=== PATIENT | male | born 1990 | race African-American/Black ===

== ENCOUNTER 2020-02-27 11:24 | Emergency (ER) | payer SELFPAY ==
[2020-02-27 11:25] VITALS: BP 145/87; PULSE 86; RESP 14; TEMP 36.4; O2SAT 100; BMI 34.0
--- NOTE | 2020-02-27 12:10 | ED.DENTAL ---
HPI - Dental/Oral <[facility] - Last Filed: 02/27/20 13:21> General Chief complaint: Dental/Oral Stated complaint: abcess in tooth,face going numb,nausea,dizzy Time Seen by Provider: 02/27/20 11:51 Source: patient and family Mode of arrival: Ambulatory Limitations: no limitations History of Present Illness HPI Narrative: The patient is a 29-year-old male current smoker who denies pertinent medical history presents with a chief complaint of a likely abscess in his tooth. He states that his left lower jaw has been hurting for several days. He has used Tylenol Motrin and is not helped that much. He states that he feels drainage from a broken tooth. This drainage is very bad tasting and makes him nauseous and dizzy. He states that the pain is shooting from his left lower jaw. He denies any fevers but complains of some chills. No vomiting. Related Data Previous Rx's Medication Instructions Recorded ondansetron 4 mg PO Q6H PRN #20 tab 02/27/20 penicillin V potassium 500 mg PO QID 7 Days #28 tab 02/27/20 tramadol 50 mg PO Q6H PRN #7 tab 02/27/20 Allergies Allergy/AdvReac Type Severity Reaction Status Date / Time No Known Drug Allergies Allergy Verified 02/27/20 11:30 Review of Systems <[facility] - Last Filed: 02/27/20 13:21> Review of Systems Narrative: GENERAL: Denies chills, fatigue, malaise, fever, sweats. HEENT: See HPI RESPIRATORY: Denies dyspnea, cough, wheezing, hemoptysis, sputum. CARDIOVASCULAR: Denies chest pain, palpitations, orthopnea, edema, GASTROINTESTINAL: See HPI : Denies dysuria, frequency, incontinence, hematuria, urinary retention. MUSCULOSKELETAL: denies weakness, joint pain, or bony pain SKIN: Denies rash, skin lesions, or other NEUROLOGIC: Denies weakness, headache, numbness, change in speech, confusion, seizures, incoordination. PSYCHIATRIC: No concerning psychosocial issues. 12 point review of systems is negative except for those stated above Patient History [facility] Last Filed: 02/27/20 13:21> Social History Smoking Status: Current every day smoker Smoking Status: Current every day smoker alcohol intake frequency: holidays/special occasions only Substance Use Type: does not use Exam <RASHMI Trent - Last Filed: 02/27/20 13:21> Narrative Exam Narrative: GENERAL: This is a well-nourished, well-developed patient, in no acute distress HEAD: Atraumatic. Normocephalic. No temporal or scalp tenderness. EYES: Pupils equal round and reactive. Extraocular motions intact. No scleral icterus. No injection or drainage. ENT: Nose without bleeding, purulent drainage or septal hematoma. Throat without erythema, tonsillar hypertrophy or exudate. Uvula midline. Airway patent. Poor dentition noted. Swelling erythema pain to palpation 1st left lower molar. Visible drainage noted. NECK: Trachea midline. No JVD or lymphadenopathy. Supple, nontender, no meningeal signs. CARDIOVASCULAR: Regular rate and rhythm RESPIRATORY: Clear to auscultation. Breath sounds equal bilaterally. No wheezes, rales, or rhonchi. No cough. No increased respiratory effort. No accessory muscle use GASTROINTESTINAL: Abdomen soft, non-tender, nondistended. No hepato-splenomegaly, or palpable masses. No guarding. EXTREMITIES: No clubbing, cyanosis, or edema. No joint tenderness, effusion, or edema noted. BACK: Nontender without deformity or crepitance. No flank tenderness. NEURO: AOx3. SKIN: No rash or erythema on visible skin. No erythema over her jaw. Initial Vital Signs Initial Vital Signs: Vital Signs Temperature 97.5 F L 02/27/20 11:25 Pulse Rate 86 02/27/20 11:25 Respiratory Rate 14 02/27/20 11:25 Blood Pressure 145/87 H 02/27/20 11:25 Pulse Oximetry 100 02/27/20 11:25 <Susie Garcia DO - Last Filed: 03/03/20 07:21> Initial Vital Signs Initial Vital Signs: Vital Signs Temperature 97.5 F L 02/27/20 11:25 Pulse Rate 86 02/27/20 11:25 Respiratory Rate 14 02/27/20 11:25 Blood Pressure 145/87 H 02/27/20 11:25 Pulse Oximetry 100 02/27/20 11:25 Course <RASHMI Trent - Last Filed: 02/27/20 13:21> Orders Ordered: Discontinued Medications Ondansetron HCl (Zofran Odt) 4 mg SL NOW ONE Stop: 02/27/20 12:10 Last Admin: 02/27/20 12:18 Dose: 4 mg Documented by: MAGGIE Tramadol HCl (Ultram) 50 mg PO NOW ONE Stop: 02/27/20 12:10 Last Admin: 02/27/20 12:18 Dose: 50 mg Documented by: MAGGIE Vital Signs Vital signs: Vital Signs - 8 hr 02/27/20 11:25 02/27/20 12:30 Temperature 97.5 F L Pulse Rate 86 76 Respiratory Rate 14 Blood Pressure 145/87 H 124/93 H Pulse Oximetry 100 100 <Susie Garcia DO - Last Filed: 03/03/20 07:21> Orders Ordered: Discontinued Medications Ondansetron HCl (Zofran Odt) 4 mg SL NOW ONE Stop: 02/27/20 12:10 Last Admin: 02/27/20 12:18 Dose: 4 mg Documented by: MAGGIE Tramadol HCl (Ultram) 50 mg PO NOW ONE Stop: 02/27/20 12:10 Last Admin: 02/27/20 12:18 Dose: 50 mg Documented by: MAGGIE Vital Signs Vital signs: Vital Signs - 8 hr 02/27/20 11:25 02/27/20 12:30 Temperature 97.5 F L Pulse Rate 86 76 Respiratory Rate 14 Blood Pressure 145/87 H 124/93 H Pulse Oximetry 100 100 MDM - Dental/Oral <RASHMI Trent - Last Filed: 02/27/20 13:21> MDM Narrative Medical decision making narrative: The patient is a 29-year-old male who presents with a chief complaint of likely dental infection. Exam correlates. Place patient on penicillin. He is hemodynamically stable and afebrile. A given tramadol and Zofran for pain. Discussed at length that he has to follow up with a dentist, gave him some dental resources as well as a primary care provider given contact information [facility] health natural resource economist. Discussed coming back to the ER for any high fevers, keep down food or fluids etcetera any acute concerns. Patient has no questions or concerns upon discharge and states understanding return precautions as well as follow-up care. Discharge Plan Departure Patient Disposition: Home Clinical Impression: Dental abscess Discharge Date/Time: 02/27/20 12:35 Instructions: Tooth Abscess, DI for Dental Pain Activity Restrictions/Additional Instructions: Thank you for trusting us with your care today. Your exam and history is concerning for a dental infection. I have sent 3 prescriptions to [facility]. This includes an antibiotic. I suggest taking this with probiotic or yogurt. I also sent you pain medicine and nausea medicine. I have given you a prescription of a narcotic for pain. Be aware that this can be constipating and sedating. I encouraged taking with a stool softener, pushing fluids and fiber. Do not take and drive, operate heavy machinery, etc. Do not combine it with any other sedating substances such as alcohol. The combination of narcotics and alcohol and/or other sedatives can be lethal. Be aware that the nausea medicine could also be sedating. I also suggest use of ice packs, [id number] medications as needed and able. Please follow-up with dentist in the next few days. I have also given contact information to the [facility] health natural resource economist, who can help you identify primary care provider. Please monitor for high fevers, inability keep down food or fluids, worsening or lack of improvement. Please come back to the emergency department for any acute concerns. Prescriptions: New ondansetron 4 mg tablet,disintegrating 4 mg PO Q6H PRN (Reason: nausea and vomiting) Qty: 20 RF: 0 tramadol 50 mg tablet 50 mg PO Q6H PRN (Reason: pain) Qty: 7 RF: 0 penicillin V potassium 500 mg tablet 500 mg PO QID 7 Days Qty: 28 RF: 0 Referrals: [facility] [Outside] <Susie Garcia, - Last Filed: 03/03/20 07:21> [facility] ED Attending Lydia Attestation: I was immediately available in the department for consultation. Documentation has been reviewed. I agree with assessment and plan.
[2020-02-27] MEDS: ONDANSETRON 4 MG ODT SL (12:18)
[2020-02-27] MEDS: TRAMADOL 50 MG TABLET PO (12:18)
[2020-02-27 12:30] VITALS: BP 124/93; PULSE 76; O2SAT 100
== END 2020-02-27 12:35 | disposition home or self-care (01) ==
PROVIDERS: Emergency Provider Nurse Practitioner Family
DX: K04.7 Periapical abscess without sinus (principal)
CPT/HCPCS: 99283

== ENCOUNTER 2020-06-07 14:51 | Emergency (ER) | payer SELFPAY ==
[2020-06-07] VITALS (13 sets, daily range): BP systolic 112–158; BP diastolic 67–85; PULSE 77–121; RESP 18–27; TEMP 36.9; O2SAT 98–100; BMI 32.5
[2020-06-07] MEDS: ACETAMINOPHEN 325 MG TABLET 975 MG PO (15:27)
[2020-06-07] MEDS: ONDANSETRON 4 MG/2 ML INJ IV ×2 (15:27→19:34)
[2020-06-07] MEDS: SODIUM CHLORIDE 0.9% 1,000 ML 1000 ML IV (15:28)
--- NOTE | 2020-06-07 15:29 | ED.SOB ---
HPI - SOB/Dyspnea General Chief Complaint: Shortness of Breath/Dyspnea Stated Complaint: hard to breath,lungs and chest hurt,dizzy Time Seen by Provider: 06/07/20 14:57 Source: patient Mode of arrival: Ambulatory Limitations: no limitations History of Present Illness HPI Narrative: This is a 30-year-old male, former smoker, has no contributory medical history presents to ED with chief complain of 2-3 day duration of my lungs and chest hurts all the time. Patient reports associated symptoms as dizziness, feeling fatigue, generalized body and muscle aches and spasm, decreased energy. Patient also reports lost taste and smell. Patient denies cough. Patient reports subjective fever and chills, 2-3 episodes of vomiting and loose stools with nausea. He had difficult time tolerating oral fluids due to nausea. Patient is uncertain of known exposure to COVID but works at [employer]. He denies recent travel. Reports his girlfriend is having symptoms dry cough and runny nose. Patient denies history of blood clots or DVT, recent surgery, history of tumors or cancers. Patient does not have PCP. Related Data Previous Rx's Medication Instructions Recorded ondansetron 4 mg PO Q6H PRN #20 tab 02/27/20 tramadol 50 mg PO Q6H PRN #7 tab 02/27/20 Allergies Allergy/AdvReac Type Severity Reaction Status Date / Time No Known Drug Allergies Allergy Verified 02/27/20 11:30 Review of Systems Review of Systems Narrative: General: See HPI HEENT: Denies sinus pain, ear pain, sore throat, difficulty swallowing, dizziness. Respiratory: Denies dyspnea, cough, wheezing, hemoptysis, sputum. Cardiovascular: Denies chest pain, palpitations, orthopnea, edema. Gastrointestinal: Denies nausea, vomiting, abdominal pain, diarrhea, constipation, melena. : Denies dysuria, frequency, incontinence, hematuria, urinary retention. Musculoskeletal: Denies weakness, joint pain or bony pain. Skin: Denies rash, skin lesions, or other. Neurologic: Denies weakness, headache, numbness, change in speech, confusion, seizures, incoordination. Psychiatric: No concerning psychosocial issues. 12-point review of systems is negative except for those stated above. Patient History Medical History No significant past medical history Surgical History No pertinent past surgical history Social History Smoking Status: Former smoker Smoking Status: Former smoker alcohol intake frequency: 0-2 drinks per day Substance Use Type: marijuana Exam Narrative Exam Narrative: GEN: Alert, oriented x 3, well appearing and nourished, and in no acute distress. Head: Normal cephalic, atraumatic. No scalp or temporal tenderness, palpable mass or rash. EYES: Pupils are equal, round, and reactive to light and accommodation. Extraocular muscles are intact bilaterally. There is no subconjunctival hemorrhage, exudate and sclera non-icteric. ENT: Hearing grossly intact. Nose without bleeding, purulent discharge or deviation. Facial sinuses nontender to palpate. Mucous membrane moist, no mucosal lesion. Throat without erythema, tonsillar hypertrophy or exudate. Uvula in midline, airway patent. Neck: Trachea in midline. No JVD, non-tender without lymphadenopathy. No masses or thyroid megaly. Supple, non-tender and no meningeal signs. CARDIAC: Normal regular tachy rate up to 120 and regular rhythm without murmurs, gallops, or rubs. No chest wall tenderness. No peripheral edema, cyanosis or pallor. Capillary refill is less than 2 seconds. RESPIRATORY: Lungs are decreased auscultate bilaterally. No cough, wheezes, rales, or rhonchi. No stridor, respiratory distress, increase work of breathing, or accessary muscle used. ABD: Abdomen soft and non-distended. Mild tenderness to palpate in bilateral upper quadrant. No guarding or rebound tenderness to palpate. Bowel sounds are normal in all 4 quadrants. There is no palpable masses or organomegaly. EXT: Full painless ROM of all extremities with no loss of sensation, strength, effusion or edema. SKIN: Warm, dry, normal color for patient. No erythema, lesions or rash over visible areas. BACK: Nontender without deformity or crepitance. No flank tenderness. NEUROLOGICAL: Alert and oriented to place, time and person. Sensation and motor function intact bilaterally. No facial droops, dysphasia. PSYCHIATRIC: Good judgement and reason, without hallucinations, abnormal affect or abnormal behaviors during the examination. Patient is not suicidal. Initial Vital Signs Initial Vital Signs: Vital Signs Temperature 98.4 F 06/07/20 15:03 Pulse Rate 114 H 06/07/20 15:03 Respiratory Rate 22 06/07/20 15:03 Blood Pressure 158/85 H 06/07/20 15:03 Pulse Oximetry 98 06/07/20 15:03 Scores GCS Nishi coma scale eye opening: Spontaneous Nishi coma scale verbal response: Orientated Stanton coma scale motor response: Obey commands Nishi coma scale total score: 15 PERC Score Age greater than or equal to 50 years: No Heart rate greater than or equal to 100 bpm: Yes Room Air O2 Sat less than 95%: No Unilateral leg swelling: No Recent trauma or surgery: No Hemoptysis: No Prior PE or DVT: No Hormone Use: No Total PERC Score: 1 qSOFA Altered Mental Status (GCS <15): No Respiratory rate greater than/equal to 22: No Systolic blood pressure less than or equal to 100: No qSOFA Total: 0 0-1 Not High Risk 1-3 High risk Wells' Criteria for PE Clinical signs and symptoms of DVT: No PE is #1 Dx or equally likely: No Heart rate > 100: Yes Immobilization at least 3 days or surg in previous 4 weeks: No History of PE or DVT: No Hemoptysis: No Malignancy w/Treatment within 6 months or palliative: No Wells' PE Score total: 1.5 Course Orders Ordered: ED Orders 06/07/20 15:14 COVID19 Stat 06/07/20 15:20 Complete Blood Count AUTO DIFF Stat Comprehensive Metabolic Panel Stat Influenza A & B (PCR) Stat 06/07/20 15:21 Blood Culture Stat Lactate (Lactic Acid) Stat Procalcitonin Stat Sodium Chloride (Normal Saline 0.9%) 1,000 mls @ 1,000 mls/hr IV BOLUS ONE Stop: 06/07/20 16:19 Discontinued Medications Acetaminophen (Acetaminophen 325 Mg Tablet) 975 mg PO NOW ONE Stop: 06/07/20 15:21 Ondansetron HCl (Ondansetron 4 Mg/2 Ml Inj) 4 mg IV NOW ONE Stop: 06/07/20 15:21 Vital Signs Vital signs: Vital Signs - 8 hr 06/07/20 15:03 Temperature 98.4 F Pulse Rate 114 H Respiratory Rate 22 Blood Pressure 158/85 H Pulse Oximetry 98 MDM - SOB/Dyspnea Differential Diagnosis Differential diagnosis: Likely community acquired pneumonia, pulmonary embolism and other (Viral illness, COVID, flu, gastroenteritis, anxiety, ACS) Medical Records Attestation: I reviewed the patient's medical records. Lab Data Result diagrams: 06/07/20 15:20 06/07/20 15:20 Discharge Plan Departure Prescriptions: No Action ondansetron 4 mg tablet,disintegrating 4 mg PO Q6H PRN (Reason: nausea and vomiting) Qty: 20 RF: 0 tramadol 50 mg tablet 50 mg PO Q6H PRN (Reason: pain) Qty: 7 RF: 0
[2020-06-07 15:30] LABS: Add Manual Diff / Slide Review NO; Basophils Absolute Auto 100 /uL (0-100); Basophils Percent Auto 0.4 % (0-2); Eosinophils Absolute Auto 100 /uL (0-450); Eosinophils Percent Auto 0.4 % (2-4); Hemoglobin 13.5 g/dL (13.5-17.5); Lymphocytes Absolute Auto 2600 /uL (1100-4500); Lymphocytes Percent Auto 18.6 % (25-40); Mean Corpuscular HGB Conc 32.2 % (30-36); Mean Corpuscular Hemoglobin 28.7 PG (26-34); Mean Corpuscular Volume 89.2 fL (80-100); Monocytes Absolute Auto 1100 /uL (0-900); Monocytes Percent Auto 7.8 % (3-14); Neutrophils Absolute Auto 10200 /uL (1500-7000); Neutrophils Percent Auto 72.8 % (50-75); Platelet Count 389 X10^3/uL (150-400); Red Blood Cell Count 4.71 X10^6/uL (4.5-5.9); Red Cell Distribution Width 13.2 % (11.6-14.8)
[2020-06-07 15:32] LABS: COVID19 -Nasal RAPID Negative (Negative)
--- NOTE | 2020-06-07 15:36 | DI.RAD.S_ITS ---
PROCEDURE: XR CHEST 2V INDICATIONS: chest pain TECHNIQUE: 2 views of the chest were acquired. COMPARISON: None. FINDINGS: Surgical changes and devices: None. Lungs and pleura: Lungs are clear. No pleural effusions or pneumothorax. Mediastinum: Mediastinal contours are normal. Heart size is normal. Bones and chest wall: No suspicious bony abnormalities. Soft tissues appear unremarkable. IMPRESSION: No acute cardiopulmonary disease. Dictated by: Papi Appiah M.D. on 06/07/2020 at 15:55 Approved by: Papi Appiah M.D. on 06/07/2020 at 15:55
[2020-06-07 15:52] LABS: Alanine Aminotransferase 58 IU/L (<50); Albumin 4.5 g/dL (3.5-5.0); Albumin Globulin Ratio 1.2 (1.0-2.8); Alkaline Phosphatase 82 U/L (38-126); Aspartate Aminotransferase 64 IU/L (17-59); BUN Creatinine Ratio 16.7 (6-22); Bilirubin Total 0.6 mg/dL (0.2-1.3); Blood Urea Nitrogen 16 mg/dL (9-20); Calcium 9.1 mg/dL (8.4-10.2); Carbon Dioxide 26 mmol/L (22-32); Chloride 102 mmol/L (98-107); Creatine Kinase 928 U/L (55-170); Estimated Glomerular Filt Rate > 60.0 mL/min (>60); Globulin 3.7 g/dL (1.7-4.1); Glucose 95 mg/dL (70-100); HEMOLYSIS < 15 (0-50); Potassium 3.8 mmol/L (3.4-5.1); Sodium 136 mmol/L (137-145); Total Protein 8.2 g/dL (6.3-8.2)
[2020-06-07 15:53] LABS: Lactate (Lactic Acid) 0.9 mmol/L (0.7-2.1); Magnesium 2.1 mg/dL (1.6-2.3)
[2020-06-07 16:01] LABS: D Dimer < 200 ng/mL (<230)
[2020-06-07 16:02] LABS: Influenza A - CEPHEID Flu A NEGATIVE (NEGATIVE); Influenza B - CEPHEID Flu B NEGATIVE (NEGATIVE)
[2020-06-07 16:04] LABS: Procalcitonin < 0.05 ng/mL (<0.5); Troponin I < 0.012 ng/mL (0.01-0.034)
--- NOTE | 2020-06-07 16:07 | DI.US.S_ITS ---
PROCEDURE: US ABDOMEN LIMITED INDICATIONS: CHEST PAIN, ELEVATED LFTS/WBC, NAUSEA/VOMITING TECHNIQUE: Real-time focused scanning was performed of the abdomen, with image documentation. COMPARISON: [facility], CR, XR CHEST 2V, 06/07/2020, 15:43. FINDINGS: The liver demonstrates prominent size. The liver demonstrates generalized moderately increased echogenicity. This decreases ultrasound sensitivity for detection of hepatic masses. The main portal vein demonstrates normal size and is patent. No findings of gallstones or sludge are seen. The gallbladder wall is not thickened, measuring 3 mm or less. No specific pericholecystic fluid is seen. The sonographic Koenig sign is negative. There is no biliary dilatation, the common bile duct measures 6 mm. Pancreas not well seen, secondary to overlying bowel gas. IMPRESSION: The gallbladder demonstrates a normal sonographic appearance. No biliary dilatation is seen. Fatty liver infiltration. Dictated by: Kurtis Nails M.D. on 06/07/2020 at 15:56 Approved by: Kurtis Nails M.D. on 06/07/2020 at 15:58
[2020-06-07 16:08] LABS: CKMB % Relative Index 0.4 % (1.5-5.0); Creatine Kinase MB 3.48 ng/mL (<2.37)
[2020-06-07 16:16] LABS: Lipase 32 U/L (23-300)
[2020-06-07] MEDS: PANTOPRAZOLE 40 MG VIAL IV (16:28)
[2020-06-07] MEDS: KETOROLAC 60 MG/2 ML VIAL 15 MG IV (16:29)
[2020-06-07 17:22] LABS: Bacteria Urine None Seen
[2020-06-07 17:26] LABS: Appearance Urine UA CLEAR; Bilirubin Urine UA NEGATIVE (NEGATIVE); Color Urine UA YELLOW; Glucose Urine UA NEGATIVE (Negative); Ketones Urine UA 2+ (NEGATIVE); Leukocyte Esterase Urine UA NEGATIVE (NEGATIVE); Nitrite Urine UA NEGATIVE (Negative); Occult Blood Urine UA NEGATIVE (Negative); Protein Urine UA TRACE (Negative); Specific Gravity Urine UA >=1.030 (1.000-1.035); Urobilinogen Urine UA 0.2 E.U./dL (0.2); pH Urine UA 5.5 (4.5-8.0)
[2020-06-07] MEDS: SODIUM CHLORIDE 0.9% 1,000 ML 250 ML IV (17:26)
[2020-06-07 17:30] LABS: UR Morphine/Opiate cutoff 300 Negative (Negative); Ur Creatinine Normal (Normal); Ur Specific Gravity Normal (Normal); Urine Amphetamines Negative (Negative); Urine Barbiturates Negative (Negative); Urine Benzodiazepines Negative (Negative); Urine Cocaine Negative (Negative); Urine MDMA Negative (Negative); Urine Methadone Negative (Negative); Urine Methamphetamines Negative (Negative); Urine Oxycodone Negative (Negative); Urine Phencyclidine Negative (Negative); Urine Tetrahydrocannabinol Positive (Negative); Urine Tricyclic Antidepressant Negative (Negative); Urine pH Normal (Normal)
[2020-06-07] MEDS: ALBUTEROL HFA PREPACK 1 BOX MISC (17:30)
[2020-06-07 17:47] LABS: RBC Urine 0-1/HPF (0-5/HPF); WBC Urine 0-1/HPF (0-5/HPF)
[2020-06-07 17:48] LABS: Culture Indicated Urine Cult Not Indicated; Mucus Urine 3+ (Negative); Squamous Epithelial Cell Urine 0-1 /HPF (0-5/HPF)
--- NOTE | 2020-06-07 18:50 | ED.SOB ---
HPI - SOB/Dyspnea <Jamar SmallwoodMARK Hubbard - Last Filed: 06/07/20 21:46> General Chief Complaint: Shortness of Breath/Dyspnea Stated Complaint: hard to breath,lungs and chest hurt,dizzy Time Seen by Provider: 06/07/20 14:57 Source: patient Mode of arrival: Ambulatory Limitations: no limitations History of Present Illness HPI Narrative: This is a 30-year-old male, smoker, who has noncontributory medical history presents to ED with chief complain of lungs and chest hurts all the time for last 2-3 days. Patient reports associated symptoms as dizziness, fatigue, myalgia, muscle spasm, subjective fever and chills, abdominal pain, urinary symptoms, nausea vomiting and loose stools. Patient states every time he tried to hydrate he feels nauseous and has been vomiting with average Mrs. and loose stools 2-3 episodes for last 3 days. Denies hematemesis, hematochezia, melena. Patient denies cough, sore throat, runny nose, or other URI symptoms. Patient reports loss of taste and smell stating tried Jalapeno today but was unable to taste. Patient reports even beer does not taste good. Patient's fiancee has symptoms of upper respiratory infection with cough and runny nose. Patient works at [employer] and is unsure of known COVID exposure. Patient had not tried medications at home. Related Data Previous Rx's Medication Instructions Recorded ondansetron 4 mg PO Q6H PRN #20 tab 02/27/20 tramadol 50 mg PO Q6H PRN #7 tab 02/27/20 Allergies Allergy/AdvReac Type Severity Reaction Status Date / Time No Known Drug Allergies Allergy Verified 02/27/20 11:30 Review of Systems <Jamar SmallwoodReidMARK pepper - Last Filed: 06/07/20 21:46> Review of Systems Narrative: General: See HPI HEENT: Denies sinus pain, ear pain, sore throat, difficulty swallowing, dizziness. Respiratory: Denies dyspnea, cough, wheezing, hemoptysis, sputum. Cardiovascular: See HPI Gastrointestinal: See HPI : Denies dysuria, frequency, incontinence, hematuria, urinary retention. Musculoskeletal: See HPI Skin: Denies rash, skin lesions, or other. Neurologic: Denies weakness, (+) headache, numbness, change in speech, confusion, seizures, incoordination. Psychiatric: No concerning psychosocial issues. 12-point review of systems is negative except for those stated above. Patient History <MARK Moreno - Last Filed: 06/07/20 21:46> Medical History No significant past medical history Surgical History No pertinent past surgical history Social History Smoking Status: Former smoker Smoking Status: Former smoker alcohol intake frequency: 0-2 drinks per day Substance Use Type: marijuana Exam <MARK Moreno - Last Filed: 06/07/20 21:46> Narrative Exam Narrative: GEN: Alert, oriented x 3, well appearing and nourished, and in no acute distress. Head: Normal cephalic, atraumatic. No scalp or temporal tenderness, palpable mass or rash. EYES: Pupils are equal, round, and reactive to light and accommodation. Extraocular muscles are intact bilaterally. There is no subconjunctival hemorrhage, exudate and sclera non-icteric. ENT: Bilateral auditory canals and tympanic membranes clear. Hearing grossly intact. Nose without bleeding, purulent discharge or deviation. Facial sinuses nontender to palpate. Mucous membrane moist, no mucosal lesion. Throat without erythema, tonsillar hypertrophy or exudate. Uvula in midline, airway patent. Neck: Trachea in midline. No JVD, non-tender without lymphadenopathy. No masses or thyroid megaly. Supple, non-tender and no meningeal signs. CARDIAC: Normal regular rate and rhythm without murmurs, gallops, or rubs. No chest wall tenderness. No peripheral edema, cyanosis or pallor. Capillary refill is less than 2 seconds. RESPIRATORY: Lungs are clear to auscultate bilaterally. No cough, wheezes, rales, or rhonchi. No stridor, respiratory distress, increase work of breathing, or accessary muscle used. ABD: Abdomen soft and non-distended. Abdomen mildly tender to palpate in bilateral upper quadrants. No guarding or rebound tenderness to palpate. Bowel sounds are normal in all 4 quadrants. There is no palpable masses or organomegaly. EXT: Full painless ROM of all extremities with no loss of sensation, strength, effusion or edema. SKIN: Warm, dry, normal color for patient. No erythema, lesions or rash over visible areas. BACK: Nontender without deformity or crepitance. No flank tenderness. NEUROLOGICAL: Alert and oriented to place, time and person. Sensation and motor function intact bilaterally. No facial droops, dysphasia. PSYCHIATRIC: Good judgement and reason, without hallucinations, abnormal affect or abnormal behaviors during the examination. Patient is not suicidal. Initial Vital Signs Initial Vital Signs: Vital Signs Temperature 98.4 F 06/07/20 15:03 Pulse Rate 114 H 06/07/20 15:03 Respiratory Rate 22 06/07/20 15:03 Blood Pressure 158/85 H 06/07/20 15:03 Pulse Oximetry 98 06/07/20 15:03 <Sharon Caceres DO - Last Filed: 06/08/20 07:19> Initial Vital Signs Initial Vital Signs: Vital Signs Temperature 98.4 F 06/07/20 15:03 Pulse Rate 114 H 06/07/20 15:03 Respiratory Rate 22 06/07/20 15:03 Blood Pressure 158/85 H 06/07/20 15:03 Pulse Oximetry 98 06/07/20 15:03 Scores <MARK Moreno - Last Filed: 06/07/20 21:46> GCS [place] coma scale eye opening: Spontaneous [place] coma scale verbal response: Orientated [place] coma scale motor response: Obey commands [place] coma scale total score: 15 HEART Score Heart Score history: Slightly Suspicious Heart Score EKG: Normal Heart Score Age: < 45 years old Heart Score risk factors: No known risk factors Heart Score troponin: < or = to normal limit Heart Score Total: 0 PERC Score Age greater than or equal to 50 years: No Heart rate greater than or equal to 100 bpm: Yes Room Air O2 Sat less than 95%: No Unilateral leg swelling: No Recent trauma or surgery: No Hemoptysis: No Prior PE or DVT: No Hormone Use: No Total PERC Score: 1 qSOFA Altered Mental Status (GCS <15): No Respiratory rate greater than/equal to 22: No Systolic blood pressure less than or equal to 100: No qSOFA Total: 0 0-1 Not High Risk 1-3 High risk Wells' Criteria for PE Clinical signs and symptoms of DVT: No PE is #1 Dx or equally likely: No Heart rate > 100: Yes Immobilization at least 3 days or surg in previous 4 weeks: No History of PE or DVT: No Hemoptysis: No Malignancy w/Treatment within 6 months or palliative: No Wells' PE Score total: 1.5 Course <Jamar Smallwood-MARK Beaulieu - Last Filed: 06/07/20 21:46> Orders Ordered: Discontinued Medications Acetaminophen (Acetaminophen 325 Mg Tablet) 975 mg PO NOW ONE Stop: 06/07/20 15:21 Last Admin: 06/07/20 15:27 Dose: 975 mg Documented by: JARAD Albuterol (Albuterol Hfa Prepack) 1 box MISC SEEINSTR ONE Stop: 06/07/20 17:13 Last Admin: 06/07/20 17:30 Dose: 1 box Documented by: VY Sodium Chloride (Normal Saline 0.9%) 1,000 mls @ 1,000 mls/hr IV BOLUS ONE Stop: 06/07/20 16:19 Last Infusion: 06/07/20 17:27 Dose: 0 mls/hr Documented by: Admin: 06/07/20 15:28 Dose: 1,000 mls/hr Documented by: JARAD Sodium Chloride (Normal Saline 0.9%) 1,000 mls @ 250 mls/hr IV CONT JET Last Infusion: 06/07/20 19:52 Dose: 0 mls/hr Documented by: Admin: 06/07/20 17:26 Dose: 250 mls/hr Documented by: ZAINAB Ketorolac Tromethamine (Ketorolac 60 Mg/2 Ml Vial) 15 mg IV NOW ONE Stop: 06/07/20 16:20 Last Admin: 06/07/20 16:29 Dose: 15 mg Documented by: ZAINAB Ondansetron HCl (Ondansetron 4 Mg/2 Ml Inj) 4 mg IV NOW ONE Stop: 06/07/20 15:21 Last Admin: 06/07/20 15:27 Dose: 4 mg Documented by: JARAD Ondansetron HCl (Ondansetron 4 Mg/2 Ml Inj) 4 mg IV NOW ONE Stop: 06/07/20 19:29 Last Admin: 06/07/20 19:34 Dose: 4 mg Documented by: ZAINAB Ondansetron HCl (Ondansetron 4 Mg Odt Prepack) 1 bottle MISC SEEINSTR ONE Stop: 06/07/20 19:35 Last Admin: 06/07/20 19:39 Dose: 1 bottle Documented by: ZAINAB Pantoprazole Sodium (Pantoprazole 40 Mg Vial) 40 mg IV NOW ONE Stop: 06/07/20 16:07 Last Admin: 06/07/20 16:28 Dose: 40 mg Documented by: ZAINAB Reevaluation(s) Reevaluation #1: Patient reports nausea improved after the Zofran and symptoms improved after Toradol. Time: 15:50 Reevaluation #2: Administering Protonix for discomfort, given patient had several episodes of vomiting. Mildly elevated liver function test, ordered ultrasound of abdomen to rule out gallbladder disease or pancreatitis etiology. Time: 16:10 Reevaluation #3: Patient reports his chest and lung discomfort improved after the albuterol inhaler through spacer. Time: 17:50 Additional Reevaluation(s): 1909-Reports nausea still mildly remaining. The second dose of Zofran IV administering before dc to home and will dc to home with Prepack Zofran. Vital Signs Vital signs: Vital Signs - 8 hr 06/07/20 15:03 06/07/20 15:06 06/07/20 15:30 Temperature 98.4 F Pulse Rate 114 H 121 H 105 H Respiratory Rate 22 18 27 H Blood Pressure 158/85 H 143/74 H Pulse Oximetry 98 98 99 06/07/20 16:00 06/07/20 16:20 06/07/20 16:30 Temperature Pulse Rate 100 H 101 H 98 H Respiratory Rate 23 20 Blood Pressure 120/74 127/76 Pulse Oximetry 99 99 06/07/20 17:00 06/07/20 17:12 06/07/20 17:30 Temperature Pulse Rate 92 H 96 H 94 H Respiratory Rate 21 21 22 Blood Pressure 135/81 117/74 Pulse Oximetry 100 99 100 06/07/20 18:00 06/07/20 18:30 06/07/20 19:00 Temperature Pulse Rate 77 92 H 77 Respiratory Rate 20 20 23 Blood Pressure 123/69 112/67 Pulse Oximetry 100 100 100 06/07/20 19:30 Temperature Pulse Rate 77 Respiratory Rate 23 Blood Pressure Pulse Oximetry 100 <Sharon Caceres, DO - Last Filed: 06/08/20 07:19> Orders Ordered: Discontinued Medications Acetaminophen (Acetaminophen 325 Mg Tablet) 975 mg PO NOW ONE Stop: 06/07/20 15:21 Last Admin: 06/07/20 15:27 Dose: 975 mg Documented by: JARAD Albuterol (Albuterol Hfa Prepack) 1 box [facility] SEEINSTR ONE Stop: 06/07/20 17:13 Last Admin: 06/07/20 17:30 Dose: 1 box Documented by: VY Sodium Chloride (Normal Saline 0.9%) 1,000 mls @ 1,000 mls/hr IV BOLUS ONE Stop: 06/07/20 16:19 Last Infusion: 06/07/20 17:27 Dose: 0 mls/hr Documented by: Admin: 06/07/20 15:28 Dose: 1,000 mls/hr Documented by: JARAD Sodium Chloride (Normal Saline 0.9%) 1,000 mls @ 250 mls/hr IV CONT JET Last Infusion: 06/07/20 19:52 Dose: 0 mls/hr Documented by: Admin: 06/07/20 17:26 Dose: 250 mls/hr Documented by: ZAINAB Ketorolac Tromethamine (Ketorolac 60 Mg/2 Ml Vial) 15 mg IV NOW ONE Stop: 06/07/20 16:20 Last Admin: 06/07/20 16:29 Dose: 15 mg Documented by: ZAINAB Ondansetron HCl (Ondansetron 4 Mg/2 Ml Inj) 4 mg IV NOW ONE Stop: 06/07/20 15:21 Last Admin: 06/07/20 15:27 Dose: 4 mg Documented by: JARAD Ondansetron HCl (Ondansetron 4 Mg/2 Ml Inj) 4 mg IV NOW ONE Stop: 06/07/20 19:29 Last Admin: 06/07/20 19:34 Dose: 4 mg Documented by: ZAINAB Ondansetron HCl (Ondansetron 4 Mg Odt Prepack) 1 bottle [facility] SEEINSTR ONE Stop: 06/07/20 19:35 Last Admin: 12/06/20 19:39 Dose: 1 bottle Documented by: ZAINAB Pantoprazole Sodium (Pantoprazole 40 Mg Vial) 40 mg IV NOW ONE Stop: 06/07/20 16:07 Last Admin: 06/07/20 16:28 Dose: 40 mg Documented by: ZAINAB Vital Signs Vital signs: Vital Signs - 8 hr 06/07/20 15:03 06/07/20 15:06 06/07/20 15:30 Temperature 98.4 F Pulse Rate 114 H 121 H 105 H Respiratory Rate 22 18 27 H Blood Pressure 158/85 H 143/74 H Pulse Oximetry 98 98 99 06/07/20 16:00 06/07/20 16:20 06/07/20 16:30 Temperature Pulse Rate 100 H 101 H 98 H Respiratory Rate 23 20 Blood Pressure 120/74 127/76 Pulse Oximetry 99 99 06/07/20 17:00 06/07/20 17:12 06/07/20 17:30 Temperature Pulse Rate 92 H 96 H 94 H Respiratory Rate 21 21 22 Blood Pressure 135/81 117/74 Pulse Oximetry 100 99 100 06/07/20 18:00 06/07/20 18:30 06/07/20 19:00 Temperature Pulse Rate 77 92 H 77 Respiratory Rate 20 20 23 Blood Pressure 123/69 112/67 Pulse Oximetry 100 100 100 06/07/20 19:30 Temperature Pulse Rate 77 Respiratory Rate 23 Blood Pressure Pulse Oximetry 100 MDM - SOB/Dyspnea <Jamar MARK Koch - Last Filed: 06/07/20 21:46> Differential Diagnosis Differential diagnosis: Likely community acquired pneumonia, pulmonary embolism and other (Gastroenteritis, pancreatitis, gallbladder disease, ACS, flu, viral illness, dehydration) Medical Records Attestation: I reviewed the patient's medical records. Lab Data Attestation: I reviewed the patient's lab results. Result diagrams: 06/07/20 15:20 06/07/20 15:20 Labs: Lab Results 06/07/20 06/07/20 06/07/20 Range/Units 15:14 15:20 15:20 WBC 14.0 H (4.5-11.0) X10^3/uL RBC 4.71 (4.5-5.9) X10^6/uL Hgb 13.5 (13.5-17.5) g/dL Hct 42.0 (41-53) % MCV 89.2 (80-100) fL MCH 28.7 (26-34) PG MCHC 32.2 (30-36) % RDW 13.2 (11.6-14.8) % Plt Count 389 (150-400) X10^3/uL Neut % (Auto) 72.8 (50-75) % Lymph % (Auto) 18.6 L (25-40) % [place] % (Auto) 7.8 (3-14) % Eos % (Auto) 0.4 L (2-4) % Baso % (Auto) 0.4 (0-2) % Neut # (Auto) 32712 H (7954-6274) /uL Lymph # (Auto) 2600 (9726-5701) /uL [place] # (Auto) 1100 H (0-900) /uL Eos # (Auto) 100 (0-450) /uL Baso # (Auto) 100 (0-100) /uL D-Dimer (<230) ng/mL Sodium 136 L (137-145) mmol/L Potassium 3.8 (3.4-5.1) mmol/L Chloride 102 (98-107) mmol/L Carbon Dioxide 26 (22-32) mmol/L BUN 16 (9-20) mg/dL Creatinine 0.96 (0.66-1.25) mg/dL Estimated GFR > 60.0 (>60) mL/min BUN/Creatinine Ratio 16.7 (6-22) Glucose 95 (70-100) mg/dL Lactate (0.7-2.1) mmol/L Calcium 9.1 (8.4-10.2) mg/dL Magnesium (1.6-2.3) mg/dL Total Bilirubin 0.6 (0.2-1.3) mg/dL AST 64 H (17-59) IU/L ALT 58 H (<50) IU/L Alkaline Phosphatase 82 (38-126) U/L Total Creatine Kinase (55-170) U/L CK-MB (CK-2) (<2.37) ng/mL CK-MB (CK-2) Rel Index (1.5-5.0) % Troponin I (0.01-0.034) ng/mL Total Protein 8.2 (6.3-8.2) g/dL Albumin 4.5 (3.5-5.0) g/dL Globulin 3.7 (1.7-4.1) g/dL Albumin/Globulin Ratio 1.2 (1.0-2.8) Lipase (23-300) U/L Procalcitonin (<0.5) ng/mL Urine Color Urine Appearance Urine pH (4.5-8.0) Ur Specific [place] (1.000-1.035) Urine Protein (Negative) Urine Glucose (UA) (Negative) g/dL Urine Ketones (NEGATIVE) Urine Occult Blood (Negative) Urine Nitrate (Negative) Urine Bilirubin (NEGATIVE) Urine Urobilinogen (0.2) E.U./dL Ur Leukocyte Esterase (NEGATIVE) Urine RBC (0-5/HPF) Urine WBC (0-5/HPF) Ur Squamous Epith Cells (0-5/HPF) Urine Bacteria (None) Urine Mucus (Negative) Ur Culture Indicated? U Opiates 300ng/mL cut (Negative) Ur Oxycodone Screen (Negative) Urine Methadone Screen (Negative) Ur Barbiturates Screen (Negative) U Tricyclic Antidepress (Negative) Ur Phencyclidine Scrn (Negative) Ur Amphetamines Screen (Negative) U Methamphetamines Scrn (Negative) Ur MDMA Scrn (Ecstasy) (Negative) U Benzodiazepines Scrn (Negative) Urine Cocaine Screen (Negative) U Marijuana (THC) Screen (Negative) COVID-19 PCR Negative (Negative) Influenza A (RT-PCR) (NEGATIVE) Influenza B (RT-PCR) (NEGATIVE) 06/07/20 06/07/20 06/07/20 Range/Units 15:20 15:20 15:20 WBC (4.5-11.0) X10^3/uL RBC (4.5-5.9) X10^6/uL Hgb (13.5-17.5) g/dL Hct (41-53) % MCV (80-100) fL MCH (26-34) PG MCHC (30-36) % RDW (11.6-14.8) % Plt Count (150-400) X10^3/uL Neut % (Auto) (50-75) % Lymph % (Auto) (25-40) % [place] % (Auto) (3-14) % Eos % (Auto) (2-4) % Baso % (Auto) (0-2) % Neut # (Auto) (1967-2368) /uL Lymph # (Auto) (8464-6874) /uL [place] # (Auto) (0-900) /uL Eos # (Auto) (0-450) /uL Baso # (Auto) (0-100) /uL D-Dimer < 200 (<230) ng/mL Sodium (137-145) mmol/L Potassium (3.4-5.1) mmol/L Chloride (98-107) mmol/L Carbon Dioxide (22-32) mmol/L BUN (9-20) mg/dL Creatinine (0.66-1.25) mg/dL Estimated GFR (>60) mL/min BUN/Creatinine Ratio (6-22) Glucose (70-100) mg/dL Lactate 0.9 (0.7-2.1) mmol/L Calcium (8.4-10.2) mg/dL Magnesium (1.6-2.3) mg/dL Total Bilirubin (0.2-1.3) mg/dL AST (17-59) IU/L ALT (<50) IU/L Alkaline Phosphatase (38-126) U/L Total Creatine Kinase (55-170) U/L CK-MB (CK-2) (<2.37) ng/mL CK-MB (CK-2) Rel Index (1.5-5.0) % Troponin I (0.01-0.034) ng/mL Total Protein (6.3-8.2) g/dL Albumin (3.5-5.0) g/dL Globulin (1.7-4.1) g/dL Albumin/Globulin Ratio (1.0-2.8) Lipase (23-300) U/L Procalcitonin < 0.05 (<0.5) ng/mL Urine Color Urine Appearance Urine pH (4.5-8.0) Ur Specific [place] (1.000-1.035) Urine Protein (Negative) Urine Glucose (UA) (Negative) g/dL Urine Ketones (NEGATIVE) Urine Occult Blood (Negative) Urine Nitrate (Negative) Urine Bilirubin (NEGATIVE) Urine Urobilinogen (0.2) E.U./dL Ur Leukocyte Esterase (NEGATIVE) Urine RBC (0-5/HPF) Urine WBC (0-5/HPF) Ur Squamous Epith Cells (0-5/HPF) Urine Bacteria (None) Urine Mucus (Negative) Ur Culture Indicated? U Opiates 300ng/mL cut (Negative) Ur Oxycodone Screen (Negative) Urine Methadone Screen (Negative) Ur Barbiturates Screen (Negative) U Tricyclic Antidepress (Negative) Ur Phencyclidine Scrn (Negative) Ur Amphetamines Screen (Negative) U Methamphetamines Scrn (Negative) Ur MDMA Scrn (Ecstasy) (Negative) U Benzodiazepines Scrn (Negative) Urine Cocaine Screen (Negative) U Marijuana (THC) Screen (Negative) COVID-19 PCR (Negative) Influenza A (RT-PCR) (NEGATIVE) Influenza B (RT-PCR) (NEGATIVE) 06/07/20 06/07/20 06/07/20 Range/Units 15:20 15:20 15:20 WBC (4.5-11.0) X10^3/uL RBC (4.5-5.9) X10^6/uL Hgb (13.5-17.5) g/dL Hct (41-53) % MCV (80-100) fL MCH (26-34) PG MCHC (30-36) % RDW (11.6-14.8) % Plt Count (150-400) X10^3/uL Neut % (Auto) (50-75) % Lymph % (Auto) (25-40) % [place] % (Auto) (3-14) % Eos % (Auto) (2-4) % Baso % (Auto) (0-2) % Neut # (Auto) (9643-5666) /uL Lymph # (Auto) (4886-5863) /uL [place] # (Auto) (0-900) /uL Eos # (Auto) (0-450) /uL Baso # (Auto) (0-100) /uL D-Dimer (<230) ng/mL Sodium (137-145) mmol/L Potassium (3.4-5.1) mmol/L Chloride (98-107) mmol/L Carbon Dioxide (22-32) mmol/L BUN (9-20) mg/dL Creatinine (0.66-1.25) mg/dL Estimated GFR (>60) mL/min BUN/Creatinine Ratio (6-22) Glucose (70-100) mg/dL Lactate (0.7-2.1) mmol/L Calcium (8.4-10.2) mg/dL Magnesium 2.1 (1.6-2.3) mg/dL Total Bilirubin (0.2-1.3) mg/dL AST (17-59) IU/L ALT (<50) IU/L Alkaline Phosphatase (38-126) U/L Total Creatine Kinase 928 H (55-170) U/L CK-MB (CK-2) 3.48 H (<2.37) ng/mL CK-MB (CK-2) Rel Index 0.4 L (1.5-5.0) % Troponin I < 0.012 (0.01-0.034) ng/mL Total Protein (6.3-8.2) g/dL Albumin (3.5-5.0) g/dL Globulin (1.7-4.1) g/dL Albumin/Globulin Ratio (1.0-2.8) Lipase 32 (23-300) U/L Procalcitonin (<0.5) ng/mL Urine Color Urine Appearance Urine pH (4.5-8.0) Ur Specific [place] (1.000-1.035) Urine Protein (Negative) Urine Glucose (UA) (Negative) g/dL Urine Ketones (NEGATIVE) Urine Occult Blood (Negative) Urine Nitrate (Negative) Urine Bilirubin (NEGATIVE) Urine Urobilinogen (0.2) E.U./dL Ur Leukocyte Esterase (NEGATIVE) Urine RBC (0-5/HPF) Urine WBC (0-5/HPF) Ur Squamous Epith Cells (0-5/HPF) Urine Bacteria (None) Urine Mucus (Negative) Ur Culture Indicated? U Opiates 300ng/mL cut (Negative) Ur Oxycodone Screen (Negative) Urine Methadone Screen (Negative) Ur Barbiturates Screen (Negative) U Tricyclic Antidepress (Negative) Ur Phencyclidine Scrn (Negative) Ur Amphetamines Screen (Negative) U Methamphetamines Scrn (Negative) Ur MDMA Scrn (Ecstasy) (Negative) U Benzodiazepines Scrn (Negative) Urine Cocaine Screen (Negative) U Marijuana (THC) Screen (Negative) COVID-19 PCR (Negative) Influenza A (RT-PCR) (NEGATIVE) Influenza B (RT-PCR) (NEGATIVE) 06/07/20 06/07/20 06/07/20 Range/Units 15:24 17:10 17:10 WBC (4.5-11.0) X10^3/uL RBC (4.5-5.9) X10^6/uL Hgb (13.5-17.5) g/dL Hct (41-53) % MCV (80-100) fL MCH (26-34) PG MCHC (30-36) % RDW (11.6-14.8) % Plt Count (150-400) X10^3/uL Neut % (Auto) (50-75) % Lymph % (Auto) (25-40) % [place] % (Auto) (3-14) % Eos % (Auto) (2-4) % Baso % (Auto) (0-2) % Neut # (Auto) (6318-0154) /uL Lymph # (Auto) (0111-0646) /uL [place] # (Auto) (0-900) /uL Eos # (Auto) (0-450) /uL Baso # (Auto) (0-100) /uL D-Dimer (<230) ng/mL Sodium (137-145) mmol/L Potassium (3.4-5.1) mmol/L Chloride (98-107) mmol/L Carbon Dioxide (22-32) mmol/L BUN (9-20) mg/dL Creatinine (0.66-1.25) mg/dL Estimated GFR (>60) mL/min BUN/Creatinine Ratio (6-22) Glucose (70-100) mg/dL Lactate (0.7-2.1) mmol/L Calcium (8.4-10.2) mg/dL Magnesium (1.6-2.3) mg/dL Total Bilirubin (0.2-1.3) mg/dL AST (17-59) IU/L ALT (<50) IU/L Alkaline Phosphatase (38-126) U/L Total Creatine Kinase (55-170) U/L CK-MB (CK-2) (<2.37) ng/mL CK-MB (CK-2) Rel Index (1.5-5.0) % Troponin I (0.01-0.034) ng/mL Total Protein (6.3-8.2) g/dL Albumin (3.5-5.0) g/dL Globulin (1.7-4.1) g/dL Albumin/Globulin Ratio (1.0-2.8) Lipase (23-300) U/L Procalcitonin (<0.5) ng/mL Urine Color Yellow Urine Appearance Clear Urine pH 5.5 (4.5-8.0) Ur Specific [place] >=1.030 H (1.000-1.035) Urine Protein Trace H (Negative) Urine Glucose (UA) Negative (Negative) g/dL Urine Ketones 2+ H (NEGATIVE) Urine Occult Blood Negative (Negative) Urine Nitrate Negative (Negative) Urine Bilirubin Negative (NEGATIVE) Urine Urobilinogen 0.2 (0.2) E.U./dL Ur Leukocyte Esterase Negative (NEGATIVE) Urine RBC 0-1/hpf (0-5/HPF) Urine WBC 0-1/hpf (0-5/HPF) Ur Squamous Epith Cells 0-1 /hpf (0-5/HPF) Urine Bacteria None seen (None) Urine Mucus 3+ H (Negative) Ur Culture Indicated? Cult not indicated U Opiates 300ng/mL cut Negative (Negative) Ur Oxycodone Screen Negative (Negative) Urine Methadone Screen Negative (Negative) Ur Barbiturates Screen Negative (Negative) U Tricyclic Antidepress Negative (Negative) Ur Phencyclidine Scrn Negative (Negative) Ur Amphetamines Screen Negative (Negative) U Methamphetamines Scrn Negative (Negative) Ur MDMA Scrn (Ecstasy) Negative (Negative) U Benzodiazepines Scrn Negative (Negative) Urine Cocaine Screen Negative (Negative) U Marijuana (THC) Screen Positive H (Negative) COVID-19 PCR (Negative) Influenza A (RT-PCR) Flu a negative (NEGATIVE) Influenza B (RT-PCR) Flu b negative (NEGATIVE) 06/07/20 Range/Units 18:32 WBC (4.5-11.0) X10^3/uL RBC (4.5-5.9) X10^6/uL Hgb (13.5-17.5) g/dL Hct (41-53) % MCV (80-100) fL MCH (26-34) PG MCHC (30-36) % RDW (11.6-14.8) % Plt Count (150-400) X10^3/uL Neut % (Auto) (50-75) % Lymph % (Auto) (25-40) % [place] % (Auto) (3-14) % Eos % (Auto) (2-4) % Baso % (Auto) (0-2) % Neut # (Auto) (7058-1022) /uL Lymph # (Auto) (0953-0213) /uL [place] # (Auto) (0-900) /uL Eos # (Auto) (0-450) /uL Baso # (Auto) (0-100) /uL D-Dimer (<230) ng/mL Sodium (137-145) mmol/L Potassium (3.4-5.1) mmol/L Chloride (98-107) mmol/L Carbon Dioxide (22-32) mmol/L BUN (9-20) mg/dL Creatinine (0.66-1.25) mg/dL Estimated GFR (>60) mL/min BUN/Creatinine Ratio (6-22) Glucose (70-100) mg/dL Lactate (0.7-2.1) mmol/L Calcium (8.4-10.2) mg/dL Magnesium (1.6-2.3) mg/dL Total Bilirubin (0.2-1.3) mg/dL AST (17-59) IU/L ALT (<50) IU/L Alkaline Phosphatase (38-126) U/L Total Creatine Kinase 862 H (55-170) U/L CK-MB (CK-2) 3.35 H (<2.37) ng/mL CK-MB (CK-2) Rel Index 0.4 L (1.5-5.0) % Troponin I < 0.012 (0.01-0.034) ng/mL Total Protein (6.3-8.2) g/dL Albumin (3.5-5.0) g/dL Globulin (1.7-4.1) g/dL Albumin/Globulin Ratio (1.0-2.8) Lipase (23-300) U/L Procalcitonin (<0.5) ng/mL Urine Color Urine Appearance Urine pH (4.5-8.0) Ur Specific [place] (1.000-1.035) Urine Protein (Negative) Urine Glucose (UA) (Negative) g/dL Urine Ketones (NEGATIVE) Urine Occult Blood (Negative) Urine Nitrate (Negative) Urine Bilirubin (NEGATIVE) Urine Urobilinogen (0.2) E.U./dL Ur Leukocyte Esterase (NEGATIVE) Urine RBC (0-5/HPF) Urine WBC (0-5/HPF) Ur Squamous Epith Cells (0-5/HPF) Urine Bacteria (None) Urine Mucus (Negative) Ur Culture Indicated? U Opiates 300ng/mL cut (Negative) Ur Oxycodone Screen (Negative) Urine Methadone Screen (Negative) Ur Barbiturates Screen (Negative) U Tricyclic Antidepress (Negative) Ur Phencyclidine Scrn (Negative) Ur Amphetamines Screen (Negative) U Methamphetamines Scrn (Negative) Ur MDMA Scrn (Ecstasy) (Negative) U Benzodiazepines Scrn (Negative) Urine Cocaine Screen (Negative) U Marijuana (THC) Screen (Negative) COVID-19 PCR (Negative) Influenza A (RT-PCR) (NEGATIVE) Influenza B (RT-PCR) (NEGATIVE) Imaging Data Chest x-ray: Radiologist's Impression: [address] [id number] ReportSigned Patient: Tien Rodriguez SR AMR#: [id number]: 1990Acct:[id number]/Sex: te of Service: 06/07/20Loc: EDAccession Number: [id number] Procedure: XR chest 2V Ordering Provider: Jamar Koch PROCEDURE: XR CHEST 2V INDICATIONS: chest pain TECHNIQUE: 2 views of the chest were acquired. COMPARISON: None. FINDINGS: Surgical changes and devices: None. Lungs and pleura: Lungs are clear. No pleural effusions or pneumothorax. Mediastinum: Mediastinal contours are normal. Heart size is normal. Bones and chest wall: No suspicious bony abnormalities. Soft tissues appear unremarkable. IMPRESSION: No acute cardiopulmonary disease. Dictated by: Papi Appiah M.D. on 06/07/2020 at 15:55 Approved by: Papi Appiah M.D. on 06/07/2020 at 15:55 ECG Data Attestation: I personally reviewed and interpreted this ECG as follows: Prior ECG tracings: not available for review Interpretation: Sinus tachycardia rate at 114. Normal [place]. [place] interval 156, QRS duration 66, QT/QTC 330/[address] changes or depression. MDM Narrative Medical decision making narrative: This is a 30-year-old male who presents to ED with concerns for COVID illness with chief complain of GI symptoms, myalgia, headaches, subjective fever and chills, ageusia and anosmia, chest discomfort. Concerned with tachycardia up to 120's upon arrival. Patient was in afebrile with within normal limits pressure. Physical exam was unremarkable except mildly tender to palpate in bilateral upper quadrant. Wells criteria for pulmonary embolism scores 1.5. PERC score is 1. HEART score is 0. qSOFA score is 0. COVID test was negative. Flu test was negative. Chest x-ray without acute findings. Mildly elevated leukocytosis of 14.0 with neutrophil counts. Lactate and procalcitonin is were normal. CMP with unremarkable chemistry results, normal kidney function. There was little bump on LFTs in AST of 60 for an ALT of 58. Normal alk phosphatase. Normal lipase. Total protein and bilirubins were within normal limits. Troponin was negative but there was elevated CPK of 928 and CK MB of 3.48 with low CK MB relative index. PE scores in low risk and D dimer was negative. Urine test without infection. UDS was positive for THC. Abdomen US ordered to evaluated patient's symptoms are due to gallbladder or pancreatic disease. Ultrasound test shows no gallstones, pericholecystic fluid, biliary dilation and negative Koenig's sign. However, steady liver infiltration appreciated. IV fluid 1 L and 250 mL of normal saline there after. Patient received IV Zofran, Toradol, Protonix with Tylenol for symptoms management which improved his symptoms. Also, with decreased lung sounds albuterol inhaler with spacer teaching by RT provided. Patient reports his symptoms are much improved after the albuterol inhaler. Repeated cardiac enzymes and CPK after total 1.5 L of normal saline infusion which shows trending decreasing to 865 and CKMB of 3.35 with low CK-MB relative index. Elevated CK PK likely from dehydration and viral illness. Again cardiac enzymes were negative. Elevated white count likely from nausea and vomiting. No signs of sepsis. Patient overly felt better except mild remaining nausea. Second dose Zofran administered before discharged to home with Zofran prepack. Patient's heart rate improved to 70's. Return precautions were discussed with patient and patient advised to refrain from alcohol and high fat diet and follow-up with primary care physician for LFT check. Discussed the importance of adequately hydrating to help with CPK and dehydration. Return precautions were discussed with patient and he verbalized understanding and agreement with treatment plan. <Sharon Caceres, - Last Filed: 06/08/20 07:19> Lab Data Labs: Lab Results 06/07/20 06/07/20 06/07/20 Range/Units 15:14 15:20 15:20 WBC 14.0 H (4.5-11.0) X10^3/uL RBC 4.71 (4.5-5.9) X10^6/uL Hgb 13.5 (13.5-17.5) g/dL Hct 42.0 (41-53) % MCV 89.2 (80-100) fL MCH 28.7 (26-34) PG MCHC 32.2 (30-36) % RDW 13.2 (11.6-14.8) % Plt Count 389 (150-400) X10^3/uL Neut % (Auto) 72.8 (50-75) % Lymph % (Auto) 18.6 L (25-40) % [place] % (Auto) 7.8 (3-14) % Eos % (Auto) 0.4 L (2-4) % Baso % (Auto) 0.4 (0-2) % Neut # (Auto) 67049 H (5725-4353) /uL Lymph # (Auto) 2600 (2821-9182) /uL [place] # (Auto) 1100 H (0-900) /uL Eos # (Auto) 100 (0-450) /uL Baso # (Auto) 100 (0-100) /uL D-Dimer (<230) ng/mL Sodium 136 L (137-145) mmol/L Potassium 3.8 (3.4-5.1) mmol/L Chloride 102 (98-107) mmol/L Carbon Dioxide 26 (22-32) mmol/L BUN 16 (9-20) mg/dL Creatinine 0.96 (0.66-1.25) mg/dL Estimated GFR > 60.0 (>60) mL/min BUN/Creatinine Ratio 16.7 (6-22) Glucose 95 (70-100) mg/dL Lactate (0.7-2.1) mmol/L Calcium 9.1 (8.4-10.2) mg/dL Magnesium (1.6-2.3) mg/dL Total Bilirubin 0.6 (0.2-1.3) mg/dL AST 64 H (17-59) IU/L ALT 58 H (<50) IU/L Alkaline Phosphatase 82 (38-126) U/L Total Creatine Kinase (55-170) U/L CK-MB (CK-2) (<2.37) ng/mL CK-MB (CK-2) Rel Index (1.5-5.0) % Troponin I (0.01-0.034) ng/mL Total Protein 8.2 (6.3-8.2) g/dL Albumin 4.5 (3.5-5.0) g/dL Globulin 3.7 (1.7-4.1) g/dL Albumin/Globulin Ratio 1.2 (1.0-2.8) Lipase (23-300) U/L Procalcitonin (<0.5) ng/mL Urine Color Urine Appearance Urine pH (4.5-8.0) Ur Specific [place] (1.000-1.035) Urine Protein (Negative) Urine Glucose (UA) (Negative) g/dL Urine Ketones (NEGATIVE) Urine Occult Blood (Negative) Urine Nitrate (Negative) Urine Bilirubin (NEGATIVE) Urine Urobilinogen (0.2) E.U./dL Ur Leukocyte Esterase (NEGATIVE) Urine RBC (0-5/HPF) Urine WBC (0-5/HPF) Ur Squamous Epith Cells (0-5/HPF) Urine Bacteria (None) Urine Mucus (Negative) Ur Culture Indicated? U Opiates 300ng/mL cut (Negative) Ur Oxycodone Screen (Negative) Urine Methadone Screen (Negative) Ur Barbiturates Screen (Negative) U Tricyclic Antidepress (Negative) Ur Phencyclidine Scrn (Negative) Ur Amphetamines Screen (Negative) U Methamphetamines Scrn (Negative) Ur MDMA Scrn (Ecstasy) (Negative) U Benzodiazepines Scrn (Negative) Urine Cocaine Screen (Negative) U Marijuana (THC) Screen (Negative) COVID-19 PCR Negative (Negative) Influenza A (RT-PCR) (NEGATIVE) Influenza B (RT-PCR) (NEGATIVE) 06/07/20 06/07/2006/07/20 Range/Units 15:20 15:20 15:20 WBC (4.5-11.0) X10^3/uL RBC (4.5-5.9) X10^6/uL Hgb (13.5-17.5) g/dL Hct (41-53) % MCV (80-100) fL MCH (26-34) PG MCHC (30-36) % RDW (11.6-14.8) % Plt Count (150-400) X10^3/uL Neut % (Auto) (50-75) % Lymph % (Auto) (25-40) % [place] % (Auto) (3-14) % Eos % (Auto) (2-4) % Baso % (Auto) (0-2) % Neut # (Auto) (5738-3656) /uL Lymph # (Auto) (3894-9630) /uL [place] # (Auto) (0-900) /uL Eos # (Auto) (0-450) /uL Baso # (Auto) (0-100) /uL D-Dimer < 200 (<230) ng/mL Sodium (137-145) mmol/L Potassium (3.4-5.1) mmol/L Chloride (98-107) mmol/L Carbon Dioxide (22-32) mmol/L BUN (9-20) mg/dL Creatinine (0.66-1.25) mg/dL Estimated GFR (>60) mL/min BUN/Creatinine Ratio (6-22) Glucose (70-100) mg/dL Lactate 0.9 (0.7-2.1) mmol/L Calcium (8.4-10.2) mg/dL Magnesium (1.6-2.3) mg/dL Total Bilirubin (0.2-1.3) mg/dL AST (17-59) IU/L ALT (<50) IU/L Alkaline Phosphatase (38-126) U/L Total Creatine Kinase (55-170) U/L CK-MB (CK-2) (<2.37) ng/mL CK-MB (CK-2) Rel Index (1.5-5.0) % Troponin I (0.01-0.034) ng/mL Total Protein (6.3-8.2) g/dL Albumin (3.5-5.0) g/dL Globulin (1.7-4.1) g/dL Albumin/Globulin Ratio (1.0-2.8) Lipase (23-300) U/L Procalcitonin < 0.05 (<0.5) ng/mL Urine Color Urine Appearance Urine pH (4.5-8.0) Ur Specific [place] (1.000-1.035) Urine Protein (Negative) Urine Glucose (UA) (Negative) g/dL Urine Ketones (NEGATIVE) Urine Occult Blood (Negative) Urine Nitrate (Negative) Urine Bilirubin (NEGATIVE) Urine Urobilinogen (0.2) E.U./dL Ur Leukocyte Esterase (NEGATIVE) Urine RBC (0-5/HPF) Urine WBC (0-5/HPF) Ur Squamous Epith Cells (0-5/HPF) Urine Bacteria (None) Urine Mucus (Negative) Ur Culture Indicated? U Opiates 300ng/mL cut (Negative) Ur Oxycodone Screen (Negative) Urine Methadone Screen (Negative) Ur Barbiturates Screen (Negative) U Tricyclic Antidepress (Negative) Ur Phencyclidine Scrn (Negative) Ur Amphetamines Screen (Negative) U Methamphetamines Scrn (Negative) Ur MDMA Scrn (Ecstasy) (Negative) U Benzodiazepines Scrn (Negative) Urine Cocaine Screen (Negative) U Marijuana (THC) Screen (Negative) COVID-19 PCR (Negative) Influenza A (RT-PCR) (NEGATIVE) Influenza B (RT-PCR) (NEGATIVE) 06/07/20 06/07/20 06/07/20 Range/Units 15:20 15:20 15:20 WBC (4.5-11.0) X10^3/uL RBC (4.5-5.9) X10^6/uL Hgb (13.5-17.5) g/dL Hct (41-53) % MCV (80-100) fL MCH (26-34) PG MCHC (30-36) % RDW (11.6-14.8) % Plt Count (150-400) X10^3/uL Neut % (Auto) (50-75) % Lymph % (Auto) (25-40) % [place] % (Auto) (3-14) % Eos % (Auto) (2-4) % Baso % (Auto) (0-2) % Neut # (Auto) (9286-1176) /uL Lymph # (Auto) (5101-4579) /uL [place] # (Auto) (0-900) /uL Eos # (Auto) (0-450) /uL Baso # (Auto) (0-100) /uL D-Dimer (<230) ng/mL Sodium (137-145) mmol/L Potassium (3.4-5.1) mmol/L Chloride (98-107) mmol/L Carbon Dioxide (22-32) mmol/L BUN (9-20) mg/dL Creatinine (0.66-1.25) mg/dL Estimated GFR (>60) mL/min BUN/Creatinine Ratio (6-22) Glucose (70-100) mg/dL Lactate (0.7-2.1) mmol/L Calcium (8.4-10.2) mg/dL Magnesium 2.1 (1.6-2.3) mg/dL Total Bilirubin (0.2-1.3) mg/dL AST (17-59) IU/L ALT (<50) IU/L Alkaline Phosphatase (38-126) U/L Total Creatine Kinase 928 H (55-170) U/L CK-MB (CK-2) 3.48 H (<2.37) ng/mL CK-MB (CK-2) Rel Index 0.4 L (1.5-5.0) % Troponin I < 0.012 (0.01-0.034) ng/mL Total Protein (6.3-8.2) g/dL Albumin (3.5-5.0) g/dL Globulin (1.7-4.1) g/dL Albumin/Globulin Ratio (1.0-2.8) Lipase 32 (23-300) U/L Procalcitonin (<0.5) ng/mL Urine Color Urine Appearance Urine pH (4.5-8.0) Ur Specific [place] (1.000-1.035) Urine Protein (Negative) Urine Glucose (UA) (Negative) g/dL Urine Ketones (NEGATIVE) Urine Occult Blood (Negative) Urine Nitrate (Negative) Urine Bilirubin (NEGATIVE) Urine Urobilinogen (0.2) E.U./dL Ur Leukocyte Esterase (NEGATIVE) Urine RBC (0-5/HPF) Urine WBC (0-5/HPF) Ur Squamous Epith Cells (0-5/HPF) Urine Bacteria (None) Urine Mucus (Negative) Ur Culture Indicated? U Opiates 300ng/mL cut (Negative) Ur Oxycodone Screen (Negative) Urine Methadone Screen (Negative) Ur Barbiturates Screen (Negative) U Tricyclic Antidepress (Negative) Ur Phencyclidine Scrn (Negative) Ur Amphetamines Screen (Negative) U Methamphetamines Scrn (Negative) Ur MDMA Scrn (Ecstasy) (Negative) U Benzodiazepines Scrn (Negative) Urine Cocaine Screen (Negative) U Marijuana (THC) Screen (Negative) COVID-19 PCR (Negative) Influenza A (RT-PCR) (NEGATIVE) Influenza B (RT-PCR) (NEGATIVE) 06/07/20 06/07/20 06/07/20 Range/Units 15:24 17:10 17:10 WBC (4.5-11.0) X10^3/uL RBC (4.5-5.9) X10^6/uL Hgb (13.5-17.5) g/dL Hct (41-53) % MCV (80-100) fL MCH (26-34) PG MCHC (30-36) % RDW (11.6-14.8) % Plt Count (150-400) X10^3/uL Neut % (Auto) (50-75) % Lymph % (Auto) (25-40) % [place] % (Auto) (3-14) % Eos % (Auto) (2-4) % Baso % (Auto) (0-2) % Neut # (Auto) (2583-6299) /uL Lymph # (Auto) (5926-0103) /uL [place] # (Auto) (0-900) /uL Eos # (Auto) (0-450) /uL Baso # (Auto) (0-100) /uL D-Dimer (<230) ng/mL Sodium (137-145) mmol/L Potassium (3.4-5.1) mmol/L Chloride (98-107) mmol/L Carbon Dioxide (22-32) mmol/L BUN (9-20) mg/dL Creatinine (0.66-1.25) mg/dL Estimated GFR (>60) mL/min BUN/Creatinine Ratio (6-22) Glucose (70-100) mg/dL Lactate (0.7-2.1) mmol/L Calcium (8.4-10.2) mg/dL Magnesium (1.6-2.3) mg/dL Total Bilirubin (0.2-1.3) mg/dL AST (17-59) IU/L ALT (<50) IU/L Alkaline Phosphatase (38-126) U/L Total Creatine Kinase (55-170) U/L CK-MB (CK-2) (<2.37) ng/mL CK-MB (CK-2) Rel Index (1.5-5.0) % Troponin I (0.01-0.034) ng/mL Total Protein (6.3-8.2) g/dL Albumin (3.5-5.0) g/dL Globulin (1.7-4.1) g/dL Albumin/Globulin Ratio (1.0-2.8) Lipase (23-300) U/L Procalcitonin (<0.5) ng/mL Urine Color Yellow Urine Appearance Clear Urine pH 5.5 (4.5-8.0) Ur Specific [place] >=1.030 H (1.000-1.035) Urine Protein Trace H (Negative) Urine Glucose (UA) Negative (Negative) g/dL Urine Ketones 2+ H (NEGATIVE) Urine Occult Blood Negative (Negative) Urine Nitrate Negative (Negative) Urine Bilirubin Negative (NEGATIVE) Urine Urobilinogen 0.2 (0.2) E.U./dL Ur Leukocyte Esterase Negative (NEGATIVE) Urine RBC 0-1/hpf (0-5/HPF) Urine WBC 0-1/hpf (0-5/HPF) Ur Squamous Epith Cells 0-1 /hpf (0-5/HPF) Urine Bacteria None seen (None) Urine Mucus 3+ H (Negative) Ur Culture Indicated? Cult not indicated U Opiates 300ng/mL cut Negative (Negative) Ur Oxycodone Screen Negative (Negative) Urine Methadone Screen Negative (Negative) Ur Barbiturates Screen Negative (Negative) U Tricyclic Antidepress Negative (Negative) Ur Phencyclidine Scrn Negative (Negative) Ur Amphetamines Screen Negative (Negative) U Methamphetamines Scrn Negative (Negative) Ur MDMA Scrn (Ecstasy) Negative (Negative) U Benzodiazepines Scrn Negative (Negative) Urine Cocaine Screen Negative (Negative) U Marijuana (THC) Screen Positive H (Negative) COVID-19 PCR (Negative) Influenza A (RT-PCR) Flu a negative (NEGATIVE) Influenza B (RT-PCR) Flu b negative (NEGATIVE) 06/07/20 Range/Units 18:32 WBC (4.5-11.0) X10^3/uL RBC (4.5-5.9) X10^6/uL Hgb (13.5-17.5) g/dL Hct (41-53) % MCV (80-100) fL MCH (26-34) PG MCHC (30-36) % RDW (11.6-14.8) % Plt Count (150-400) X10^3/uL Neut % (Auto) (50-75) % Lymph % (Auto) (25-40) % [place] % (Auto) (3-14) % Eos % (Auto) (2-4) % Baso % (Auto) (0-2) % Neut # (Auto) (7681-6670) /uL Lymph # (Auto) (0769-3164) /uL [place] # (Auto) (0-900) /uL Eos # (Auto) (0-450) /uL Baso # (Auto) (0-100) /uL D-Dimer (<230) ng/mL Sodium (137-145) mmol/L Potassium (3.4-5.1) mmol/L Chloride (98-107) mmol/L Carbon Dioxide (22-32) mmol/L BUN (9-20) mg/dL Creatinine (0.66-1.25) mg/dL Estimated GFR (>60) mL/min BUN/Creatinine Ratio (6-22) Glucose (70-100) mg/dL Lactate (0.7-2.1) mmol/L Calcium (8.4-10.2) mg/dL Magnesium (1.6-2.3) mg/dL Total Bilirubin (0.2-1.3) mg/dL AST (17-59) IU/L ALT (<50) IU/L Alkaline Phosphatase (38-126) U/L Total Creatine Kinase 862 H (55-170) U/L CK-MB (CK-2) 3.35 H (<2.37) ng/mL CK-MB (CK-2) Rel Index 0.4 L (1.5-5.0) % Troponin I < 0.012 (0.01-0.034) ng/mL Total Protein (6.3-8.2) g/dL Albumin (3.5-5.0) g/dL Globulin (1.7-4.1) g/dL Albumin/Globulin Ratio (1.0-2.8) Lipase (23-300) U/L Procalcitonin (<0.5) ng/mL Urine Color Urine Appearance Urine pH (4.5-8.0) Ur Specific [place] (1.000-1.035) Urine Protein (Negative) Urine Glucose (UA) (Negative) g/dL Urine Ketones (NEGATIVE) Urine Occult Blood (Negative) Urine Nitrate (Negative) Urine Bilirubin (NEGATIVE) Urine Urobilinogen (0.2) E.U./dL Ur Leukocyte Esterase (NEGATIVE) Urine RBC (0-5/HPF) Urine WBC (0-5/HPF) Ur Squamous Epith Cells (0-5/HPF) Urine Bacteria (None) Urine Mucus (Negative) Ur Culture Indicated? U Opiates 300ng/mL cut (Negative) Ur Oxycodone Screen (Negative) Urine Methadone Screen (Negative) Ur Barbiturates Screen (Negative) U Tricyclic Antidepress (Negative) Ur Phencyclidine Scrn (Negative) Ur Amphetamines Screen (Negative) U Methamphetamines Scrn (Negative) Ur MDMA Scrn (Ecstasy) (Negative) U Benzodiazepines Scrn (Negative) Urine Cocaine Screen (Negative) U Marijuana (THC) Screen (Negative) COVID-19 PCR (Negative) Influenza A (RT-PCR) (NEGATIVE) Influenza B (RT-PCR) (NEGATIVE) Discharge Plan Departure Patient Disposition: Home Clinical Impression: Vomiting and diarrhea, Atypical chest pain, Elevated CK Instructions: DI for Dehydration -- Adult, DI for Viral Gastroenteritis -- Adult, DI for Atypical Chest Pain Activity Restrictions/Additional Instructions: You have been diagnosed with [atypical chest pain and myalgia, dehydration, elevated CK likely from dehydration and viral illness. Negative 2 sets of cardiac enzymes. No indications for COVID or flu. No acute findings and chest x-ray such as pneumonia, pneumothorax. Slightly elevated liver function tests and ultrasound in her abdomen indicates fatty liver. Please hydrate well to help with elevated CK level. Your body aches will improve when these numbers improved. Use Zofran your going home with as needed to hydrate.]. What to do: *Take your medications as directed. You can take [id number] Tylenol and or Motrin as needed for discomfort. If albuterol inhaler helped with chest/lung discomfort you can continue to use this 2 puffs every 4 hours as needed with cough, wheezing, chest tightness with spacer. *Follow up with your primary care provider in 2-3 days, call for an appointment. Let them know you were seen in the ED and that we asked you to be seen in follow up. Please continue to use good social distancing, good hand hygiene. *Return to ED if you have any new, worsening, or concerning symptoms, such as [worsening pain, fever, unable to tolerate fluids, abdominal pain, chest pain, or any acute concerns]. Prescriptions: No Action ondansetron 4 mg tablet,disintegrating 4 mg PO Q6H PRN (Reason: nausea and vomiting) Qty: 20 RF: 0 tramadol 50 mg tablet 50 mg PO Q6H PRN (Reason: pain) Qty: 7 RF: 0 Referrals: [facility] [Outside] Stand Alone Forms: Work Release Note <Sharon Caceres DO - Last Filed: 06/08/20 07:19> Cosign ED Attending Cosignature Attestation: I was immediately available in the department for consultation. This documentation has been reviewed and I agree with assessment and plan. Supervised by Sharon Caceres DO
[2020-06-07 19:02] LABS: Creatine Kinase 862 U/L (55-170)
[2020-06-07 19:15] LABS: Troponin I < 0.012 ng/mL (0.01-0.034)
[2020-06-07 19:17] LABS: CKMB % Relative Index 0.4 % (1.5-5.0); Creatine Kinase MB 3.35 ng/mL (<2.37)
[2020-06-07] MEDS: ONDANSETRON 4 MG ODT PREPACK 1 BOTTLE MISC (19:39)
== END 2020-06-07 19:54 | disposition home or self-care (01) ==
PROVIDERS: Emergency Provider Nurse Practitioner Family
DX: R07.89 Other chest pain (principal); R11.2 Nausea with vomiting, unspecified; R74.8 Abnormal levels of other serum enzymes; R42 Dizziness and giddiness; M62.838 Other muscle spasm; R50.9 Fever, unspecified; R10.9 Unspecified abdominal pain; R19.7 Diarrhea, unspecified; R07.9 Chest pain, unspecified; R00.0 Tachycardia, unspecified
CPT/HCPCS: 36415; 71046; 76705; 80053; 80305; 81001; 82550; 82553; 83605; 83690; 83735; 84145; 84484; 85025; 85379; 87040; 87502; 87635; 93005; 96361; 96374; 96375; 96376; 99284; C9113; J1885; J2405